=== PATIENT | male | born 1995 | race Two or more races ===

== ENCOUNTER 2019-04-29 00:39 | Emergency (ER) | payer MEDICARE, OTHER ==
[~2019-04-29] VITALS: Ht 157.5 cm; Wt 75.3 kg
[2019-04-29 02:51] VITALS: BP 143/84
[2019-04-29] MEDS ORDERED: KETOROLAC TROMETH 60MG/2ML VIAL IM ONE (03:00)
[2019-04-29] MEDS ORDERED: BACLOFEN 10 MG TAB PO ONE (03:00)
[2019-04-29] MEDS ORDERED: HYDROcodone-ACET 5/325MG TAB PO ONE (03:00)
== END 2019-04-29 03:30 | disposition home or self-care (01) ==
LOC: ER 00:39
DX: S46.912A Strain of unspecified muscle, fascia and tendon at shoulder and upper arm level, left arm, initial encounter (principal); S46.911A Strain of unspecified muscle, fascia and tendon at shoulder and upper arm level, right arm, initial encounter; X50.0XXA Overexertion from strenuous movement or load, initial encounter; Y93.89 Activity, other specified; Y99.8 Other external cause status; Y92.89 Other specified places as the place of occurrence of the external cause
CPT/HCPCS: 72125; 96372; 99284; J1885

== ENCOUNTER 2019-07-13 15:08 | Emergency (ER) | payer MEDICARE, OTHER ==
[~2019-07-13] VITALS: Ht 157.5 cm; Wt 74.4 kg
[2019-07-13 15:14] VITALS: BP 122/63
== END 2019-07-13 16:16 | disposition home or self-care (01) ==
LOC: ER 15:08
DX: S40.812A Abrasion of left upper arm, initial encounter (principal); V49.9XXA Car occupant (driver) (passenger) injured in unspecified traffic accident, initial encounter; Y93.89 Activity, other specified; Y92.89 Other specified places as the place of occurrence of the external cause; Y99.8 Other external cause status

== ENCOUNTER 2019-08-10 23:40 | Emergency (ER) | payer MEDICARE, OTHER ==
[~2019-08-10] VITALS: Ht 157.5 cm; Wt 77.1 kg
[2019-08-11 04:06] VITALS: BP 138/85
[2019-08-11] MEDS ORDERED: methylPREDNISolone SOD SUCC 125 MG/2 ML VL IM ONE (04:15)
[2019-08-11] MEDS ORDERED: KETOROLAC TROMETH 60MG/2ML VIAL IM ONE (04:15)
== END 2019-08-11 04:35 | disposition home or self-care (01) ==
LOC: ER 23:40
DX: S76.012A Strain of muscle, fascia and tendon of left hip, initial encounter (principal); S76.011A Strain of muscle, fascia and tendon of right hip, initial encounter; M79.10 Myalgia, unspecified site; X50.0XXA Overexertion from strenuous movement or load, initial encounter; Y93.89 Activity, other specified; Y99.8 Other external cause status; Y92.89 Other specified places as the place of occurrence of the external cause
CPT/HCPCS: 73502; 96372; 99283; J1885; J2930

== ENCOUNTER 2021-03-26 15:24 | Inpatient (IN) | payer MEDICARE, OTHER ==
[~2021-03-26] VITALS: Ht 188 cm; Wt 72.3 kg
[2021-03-26] MEDS ORDERED: SODIUM CHLORIDE 0.9% 1,000 ML IV ONE ×2 (15:45)
[2021-03-26] MEDS ORDERED: metroNIDAZOLE 500MG/100ML 100 ML IV ONE (15:45)
[2021-03-26] MEDS ORDERED: ONDANSETRON HCL 4 MG/2 ML VIAL IV ONE (15:45)
[2021-03-26 16:52] LABS: Basophils # (auto) 0 10 ^3/uL (0-0.2); Basophils % (auto) 0.3 % (0.0-2.0); Eosinophils # (auto) 0 10 ^3/uL (0-0.8); Eosinophils % (auto) 0.3 % (0.0-7.0); Hematocrit 46.8 % (41.0-53.0); Hemoglobin 16.3 g/dL (13.5-17.5); Lymphocytes # (auto) 0.3 10 ^3/uL (0.4-5.4); Lymphocytes % (auto) 3.8 % (10.0-50.0); Mean Corpuscular Hemoglobin 29.1 pg (28.0-32.0); Mean Corpuscular Hgb Conc. 34.8 g/dL (32.0-36.0); Mean Corpuscular Volume 83.7 fL (80.0-100.0); Monocytes # (auto) 0.3 10 ^3/uL (0-1.3); Monocytes % (auto) 3.7 % (0.0-12.0); Neutrophils # (auto) 8.5 10 ^3/uL (1.6-8.6); Neutrophils % (auto) 91.9 % (37.0-80.0); Nucleated Red Blood Cells % 0.1 %; Platelet Count (auto) 147 10^3/uL (140-450); Red Blood Cells 5.59 10^6/uL (4.5-5.90); Red Cell Distribution Width 13.9 % (11.8-14.3); White Blood Cell 9.3 10^3/uL (4.4-10.8)
[2021-03-26 17:10] LABS: Albumin 4.4 g/dL (3.4-5.0); Calcium 8.7 mg/dL (8.5-10.1); Potassium 3.9 mmol/L (3.5-5.1)
[2021-03-26 17:14] LABS: BUN/Creatinine Ratio 9.3; Bilirubin, Total 0.7 mg/dL (0.2-1.0); Lactic Acid w/Reflex 2.6 mmol/L (0.4-2.0); Total Protein 8.2 g/dL (6.4-8.2)
[2021-03-26] MEDS ORDERED: TEMAZEPAM 15 MG CAP PO PRN (21:15)
[2021-03-26] MEDS ORDERED: PANTOPRAZOLE 40 MG/10 ML VIAL INJ IV ONE (21:15)
[2021-03-26] MEDS ORDERED: ACETAMINOPHEN 325 MG TAB PO PRN (21:15)
[2021-03-26] MEDS ORDERED: HYDROcodone-ACET 5/325MG TAB PO PRN (21:15)
[2021-03-26] MEDS ORDERED: ONDANSETRON HCL 4 MG/2 ML VIAL IV PRN (21:15)
[2021-03-26] MEDS: metroNIDAZOLE 500MG/100ML 100 ML IV SCH (22:36)
[2021-03-27] MEDS: metroNIDAZOLE 500MG/100ML 100 ML IV SCH (06:27)
[2021-03-27 06:58] LABS: Basophils # (auto) 0 10 ^3/uL (0-0.2); Basophils % (auto) 0.3 % (0.0-2.0); Eosinophils # (auto) 0 10 ^3/uL (0-0.8); Eosinophils % (auto) 0.4 % (0.0-7.0); Hematocrit 40.4 % (41.0-53.0); Hemoglobin 13.8 g/dL (13.5-17.5); Lymphocytes # (auto) 0.8 10 ^3/uL (0.4-5.4); Lymphocytes % (auto) 13.1 % (10.0-50.0); Mean Corpuscular Hemoglobin 28.7 pg (28.0-32.0); Mean Corpuscular Hgb Conc. 34.1 g/dL (32.0-36.0); Mean Corpuscular Volume 84.3 fL (80.0-100.0); Monocytes # (auto) 0.5 10 ^3/uL (0-1.3); Monocytes % (auto) 8.5 % (0.0-12.0); Neutrophils % (auto) 77.7 % (37.0-80.0); Nucleated Red Blood Cells % 0.1 %; Platelet Count (auto) 123 10^3/uL (140-450); Red Blood Cells 4.79 10^6/uL (4.5-5.90); Red Cell Distribution Width 13.9 % (11.8-14.3); White Blood Cell 6.4 10^3/uL (4.4-10.8)
[2021-03-27 07:30] LABS: Potassium 3.1 mmol/L (3.5-5.1)
[2021-03-27 07:31] LABS: BUN/Creatinine Ratio 11.9; Calcium 7.8 mg/dL (8.5-10.1)
[2021-03-27] MEDS ORDERED: PANTOPRAZOLE 40 MG/10 ML VIAL INJ IV SCH (10:00)
[2021-03-27 11:46] VITALS: BP 122/72
== END 2021-03-27 14:41 | disposition home or self-care (01) | DRG 392 ==
LOC: ER 15:28 → OVERFLOW 21:10
PROVIDERS: ADMIT Nurse Practitioner; ATTEND Internal Medicine Pulmonary Disease
DX: A08.4 Viral intestinal infection, unspecified (principal); E86.0 Dehydration; Z20.822 Contact with and (suspected) exposure to COVID-19; F32.9 Major depressive disorder, single episode, unspecified; F41.9 Anxiety disorder, unspecified; Z79.899 Other long term (current) drug therapy
CPT/HCPCS: 36415; 71046; 74176; 80048; 80053; 83605; 85025; 87040; 87426; C9113; G0378; J3490